=== PATIENT | male | born 1940 | race Caucasian/White ===

== ENCOUNTER 2018-12-21 06:29 | Emergency (ER) | payer OTHER ==
[~2018-12-21] VITALS: Ht 167.6 cm; Wt 84.8 kg
[2018-12-21 06:36] VITALS: Ht 167.6 cm; Wt 84.8 kg
[2018-12-21 08:03] LABS: CALCIUM 8.6 mg/dL (8.5-10.1); CARBON DIOXIDE 26.5 mmol/L (21-32); CHLORIDE SERUM 107 mmol/L (98-107); CREATININE SERUM 1.2 mg/dL (0.7-1.3); GLUCOSE SERUM 114 mg/dL (74-106); POTASSIUM SERUM 3.7 mmol/L (3.5-5.1); SODIUM SERUM 141 mmol/L (136-145)
[2018-12-21 08:08] LABS: ALBUMIN 3.7 g/dL (3.4-5.0); ALKALINE PHOSPHATASE 75 U/L (46-116); ALT/SGPT 16 U/L (16-63); AST/SGOT 18 U/L (15-37); BILIRUBIN TOTAL 0.68 mg/dL (0.20-1.00); TOTAL PROTEIN, SERUM 7.1 g/dL (6.4-8.2)
[2018-12-21 09:23] LABS: BASOPHIL % 0.4 % (0-2); PLATELET COUNT 179 x10^3mcL (130-400)
[2018-12-21 09:25] LABS: RED CELL DISTRIBUTION WIDTH 14.6 % (11.5-14.5)
[2018-12-21 11:17] VITALS: BP 156/87
== END 2018-12-21 11:17 | disposition home or self-care (01) ==
LOC: ED 06:29
PROVIDERS: Emergency Medicine
DX: E86.0 Dehydration (principal); J06.9 Acute upper respiratory infection, unspecified; R19.7 Diarrhea, unspecified; I10 Essential (primary) hypertension
CPT/HCPCS: 87804; J7030; Q0092

== ENCOUNTER 2019-12-19 13:02 | Emergency (ER) | payer OTHER ==
[~2019-12-19] VITALS: Ht 167.6 cm; Wt 83.0 kg
[2019-12-19 13:10] VITALS: Ht 167.6 cm; Wt 83.0 kg
[2019-12-19 16:20] VITALS: BP 133/71
== END 2019-12-19 16:20 | disposition home or self-care (01) ==
LOC: ED 13:02
DX: H10.89 Other conjunctivitis (principal); R05 Cough; I10 Essential (primary) hypertension; E78.5 Hyperlipidemia, unspecified